=== PATIENT | male | born 1955 | race Caucasian/White ===

== ENCOUNTER 2018-11-27 07:59 | Day surgery (SDC) | payer BC ==
[~2018-11-27] VITALS: Ht 188 cm; Wt 123.9 kg
[2018-11-27 08:28] VITALS: BP 164/106; PULSE 95; TEMP 98.4
[2018-11-27] MEDS ORDERED: MULTI VITAMINS1 TAB PO (08:40)
[2018-11-27] MEDS ORDERED: [UNRECOGNIZED DRUG - OTHER] PO (08:41)
--- NOTE | 2018-11-27 08:41 | NUR ---
TO RM AT 0805- CALL LIGHT IN REACH JOHN AT BEDSIDE.
[2018-11-27 10:00] VITALS: BP 146/106; PULSE 66; TEMP 98.4
--- NOTE | 2018-11-27 10:00 | NUR ---
PT ON CART FROM PROCEDURE ROOM TO BAY 7 BY NURSE. PT AMBULATES TO CHAIR FROM CART WITH ASSISTANCE. PT VITAL SIGNS STABLE. PT DENIES C/O. CALL LIGHT NEXT TO PT.
[2018-11-27 10:15] VITALS: BP 137/88; PULSE 72
--- NOTE | 2018-11-27 10:15 | NUR ---
PT CONTINUES TO DENY C/O. PT EATING TOAST AND DRINKING JUICE. VITAL SIGNS STABLE.
[2018-11-27 10:30] VITALS: BP 129/86; PULSE 66
--- NOTE | 2018-11-27 10:30 | NUR ---
PT CONTINUES TO DENY C/O. VITAL SIGNS STABLE. CALL LIGHT NEXT TO PT.
[2018-11-27 10:45] VITALS: BP 128/79; PULSE 60
--- NOTE | 2018-11-27 10:45 | NUR ---
PT CONTINUES TO DENY C/O. PT EATING TOAST AND JUICE. PT IN ROOM. VITAL SIGNS STABLE. CALL LIGHT NEXT TO PT.
== END 2018-11-27 11:10 | disposition home or self-care (01) ==
LOC: SDCO 07:59
DX: Z12.11 Encounter for screening for malignant neoplasm of colon (principal); D12.2 Benign neoplasm of ascending colon; I10 Essential (primary) hypertension
CPT/HCPCS: OP; J2250; J2405; J3010; J7030

== ENCOUNTER 2019-06-27 15:09 | Emergency (ER) | payer BC ==
[~2019-06-27] VITALS: Ht 188 cm; Wt 124.0 kg
[~2019-06-27 15:09] MED LIST: MULTI VITAMINS1 TAB PO; [UNRECOGNIZED DRUG - OTHER] PO
[2019-06-27 15:13] VITALS: TEMP 98.8
[2019-06-27] MEDS ORDERED: ASPIRIN 81M81 MG/TA2 PO (15:18)
[2019-06-27] MEDS ORDERED: PRINIVIL10 MG PO (15:19)
[2019-06-27] MEDS ORDERED: ASPIRIN 32325 MG/TA1 PO (15:19)
[2019-06-27 16:09] LABS: COLLECTION METHOD CLEAN CATCH
[2019-06-27 16:14] LABS: BASO % 0.5 % (0.0-2.0); EOS # 0.1 (0.0-0.7); GRAN # 6.1 (1.4-6.5); GRAN % 74.8 % (42.2-75.2); HEMATOCRIT 42.9 % (42.0-52.0); HEMOGLOBIN 14.8 g/dl (13.5-18.0); LYMPH # 0.9 (1.2-3.4); LYMPH % 10.9 % (20.0-51.0); MEAN CELL VOLUME 89 fl (80.0-100.0); MEAN CORPUSCULAR HEMOGLOBIN 31 pg (27.0-31.0); MEAN CORPUSCULAR HGB CONC 35 g/dl (33.0-37.0); MEAN PLATELET VOLUME 9.8 fl (7.4-10.4); MONO % 12.4 % (1.7-9.3); PLATELET COUNT 257 K/mm3 (130-400); RED BLOOD COUNT 4.83 M/mm3 (4.20-5.60); REDCELL DISTRIBUTION WIDTH-CV 11.8 % (11.5-14.5)
[2019-06-27 16:26] LABS: BILIRUBIN,TOTAL 0.5 mg/dL (0.0-1.0); C-REACTIVE PROTEIN 8.8 mg/dL (0.0-0.9); CREATININE, serum 1.23 (0.66-1.25); POTASSIUM 4.1 mmol/L (3.4-5.0); TOTAL PROTEIN 7.4 gm/dL (6.4-8.2)
[2019-06-27 16:28] LABS: MUCOUS Present /lpf; PH 5 (5-8); SQUAMOUS EPITHELIAL 0-2 /hpf; URINE APPEARANCE Clear; URINE BACTERIA None Seen /hpf; URINE BILIRUBIN Negative (NEGATIVE); URINE BLOOD Negative (NEGATIVE); URINE COLOR Yellow; URINE GLUCOSE Negative (NEGATIVE); URINE KETONE Negative (NEGATIVE); URINE LEUKOCYTE ESTERASE Negative (NEGATIVE); URINE NITRATE Negative (NEGATIVE); URINE PROTEIN(semi-quant) Negative (NEGATIVE); URINE RBC 0-2 /hpf; URINE UROBILINOGEN Negative (NEGATIVE)
[2019-06-27 16:57] LABS: ERYTHROCYTE SEDIMENTATION RATE 63 mm/hr (0-30)
[2019-06-27] MEDS ORDERED: DOXYCYCLINE 10100 MG PO (17:47)
[2019-06-27] MEDS ORDERED: PREDNISONE20 MG PO (17:47)
[2019-06-27 18:00] VITALS: BP 155/99; PULSE 75
== END 2019-06-27 18:02 | disposition home or self-care (01) ==
LOC: COL.ER 15:09
PROVIDERS: Emergency Medicine
DX: R51 Headache (principal); I10 Essential (primary) hypertension; R53.81 Other malaise; M79.10 Myalgia, unspecified site; Z79.82 Long term (current) use of aspirin
CPT/HCPCS: J7030; J7512